=== PATIENT | female | born 1955 | race Caucasian/White ===

== ENCOUNTER 2019-03-22 14:11 | Outpatient (CLI) | payer BC, OTHER ==
--- NOTE | 2019-03-22 14:33 | RAD ---
PA AND LATERAL VIEWS CHEST: Date: 03/22/19 HISTORY: Hemothorax. FINDINGS/IMPRESSION: There are no previous exams for comparison. The heart size is normal. The aorta is tortuous. The lungs are expanded without lobar consolidation o r pneumothoraces. There is a small right pleural effusion. Deformity of the ribs is noted on the righ t. POS: [facility]
== END 2019-03-22 14:12 | disposition home or self-care (01) ==
LOC: RAD 14:11
PROVIDERS: ATTEND Thoracic Surgery (Cardiothoracic Vascular Surgery)
DX: J94.2 Hemothorax (principal); J90 Pleural effusion, not elsewhere classified; M95.4 Acquired deformity of chest and rib
CPT/HCPCS: 71046